=== PATIENT | male | born 1980 | race Caucasian/White ===

== ENCOUNTER 2018-03-03 22:53 | Emergency (ER) | payer BC, OTHER ==
[2018-03-03] MEDS ORDERED: LORazepam 1 MG Tab PO ONE (23:29)
--- NOTE | 2018-03-03 23:36 | EDM.PDOC ---
ED HPI GENERAL MEDICAL PROBLEM - General Chief Complaint: Behavioral/Psych Stated Complaint: JEAN PAUL LI Time Seen by Provider: 03/03/18 23:05 - History of Present Illness INITIAL COMMENTS - FREE TEXT/NARRATIVE: HISTORY AND PHYSICAL: History of present illness: The patient is a 38-year-old male with a history of arrhythmia migraine headaches and chronic back pain who has a provider in [facility] and presents tonight with one to one and a half months history of depression which she feels is worsening. The patient has never worked with a counselor or psychiatrist in the past and said he has had intermittent episodes of depression but never sought treatment because they always improved. Over the last 1-1-1/2 months he says that he has not been as effective at working things through on his own and would like help. He has not spoken to his provider in [place] about options for this and his has a history of depression and when he spoke with her this evening about his feelings she thought he should be seen emergently. When I specifically asked about what was different or new this evening he said nothing only that he did sit down and talk with his and she was unaware of a lot of his feelings. He has no suicidal plan no suicidal thoughts or homicidal thoughts and said he is just depressed about a lot of issues with his family and his life. He has been having trouble sleeping but is eating fine and has no systemic complaints. He said that he had a feeling that we would not have much to offer but any information or referrals would be helpful. He denies any pain currently and does not exhibit any suicidal thoughts on my evaluation and questioning of him. The patient tells me that he used to be a heavy nicotine chewer and quit about a month and a half ago and is not sure if that contributed to some of the changes he has been feeling. He is using an Nicoderm patch only Review of systems: As per history of present illness and below otherwise all systems reviewed and negative. Past medical history: As per history of present illness and as reviewed below otherwise noncontributory. Surgical history: As per history of present illness and as reviewed below otherwise noncontributory. Social history: No reported history of drug or alcohol abuse. Family history: As per history of present illness and as reviewed below otherwise noncontributory. Physical exam: General: Well-developed well-nourished mildly overweight man who is nontoxic and vital signs are noted by me. His a fact is somewhat quiet and flattened with some depressive features but he is open to conversation HEENT: Atraumatic, normocephalic, negative for conjunctival pallor or scleral icterus, mucous membranes moist, throat clear, neck supple, nontender, trachea midline. Lungs: Clear to auscultation, breath sounds equal bilaterally, chest nontender. Heart: S1S2, regular in rhythm no overt murmurs Abdomen: Soft, nondistended, nontender. NABS Pelvis: Deferred Genitourinary: Deferred. Rectal: Deferred. Extremities: Atraumatic, full range of motion without defects or deficits Neurovascular unremarkable. Neuro: Awake, alert, oriented. Cranial nerves II through XII unremarkable. Cerebellum unremarkable. Motor and sensory unremarkable throughout. Exam nonfocal. Diagnostics: [] Therapeutics: Ativan by mouth I discussed the patient's situation for a long time with both the patient alone and also with the at bedside. They're both aware that we are very limited with our resources and as he does not mandate inpatient admission nor does he want that we will give him all resources that we have for outpatient treatment. I've discussed with him connecting with his provider in [facility] as that person may have resources available for which the patient can take advantage more quickly. He states understanding of my limitations and my advice. I told him that if the situation evolves or worsens that we are always here and he can return at any time. Impression: Depression Definitive disposition and diagnosis as appropriate pending reevaluation and review of above. - Related Data Allergies Allergy/AdvReac Type Severity Reaction Status Date / Time No Known Allergies Allergy Verified 03/03/18 23:13 Home Meds: Home Meds Topiramate [Topamax] 0 mg PO DAILY 03/03/18 [History] Past Medical History HEENT History: Reports: Impaired Vision, Other (See Below) Other HEENT History: wears glasses Cardiovascular History: Reports: Arrhythmia Musculoskeletal History: Reports: Back Pain, Chronic Neurological History: Reports: Migraines Endocrine/Metabolic History: Reports: Obesity/BMI 30+ Social & Family History - Family History Family Medical History: Noncontributory - Tobacco Use Smoking Status *Q: Former Smoker Used Tobacco, but Quit: Yes Month/Year Tobacco Last Used: 1 - Recreational Drug Use Recreational Drug Use: No ED ROS GENERAL - Review of Systems Review Of Systems: ROS reveals no pertinent complaints other than HPI. ED EXAM, GENERAL - Physical Exam Exam: See Below (See dictation) Course - Vital Signs Last Recorded V/S: Last Vital Signs Temp 36.3 C 03/03/18 22:53 Pulse 69 03/03/18 22:53 Resp 18 03/03/18 22:53 BP 131/79 03/03/18 22:53 Pulse Ox 97 03/03/18 22:53 - Orders/Labs/Meds Orders: Active Orders 24 hr Category Date Time Status LORazepam [Ativan] Med 03/03/18 23:29 Once 2 mg PO ONETIME ONE Medication Orders Lorazepam (Ativan) 2 mg PO ONETIME ONE Stop: 03/03/18 23:30 Meds: Medications Generic Name Dose Route Start Last Admin Trade Name Freq PRN Reason Stop Dose Admin Lorazepam 2 mg 03/03/18 23:29 Ativan PO 03/03/18 23:30 ONETIME ONE Departure - Departure Time of Disposition: 23:36 Disposition: Home, Self-Care 01 Condition: Good Clinical Impression: Depression Qualifiers: Depression Type: unspecified Qualified Code(s): F32.9 - Major depressive disorder, single episode, unspecified - Discharge Information Referrals: PCP,None [Primary Care Provider] - Additional Instructions: The following information is given to patients seen in the emergency department who are being discharged to home. This information is to outline your options for follow-up care. We provide all patients seen in our emergency department with a follow-up referral. The need for follow-up, as well as the timing and circumstances, are variable depending upon the specifics of your emergency department visit. If you don't have a primary care physician on staff, we will provide you with a referral. We always advise you to contact your personal physician following an emergency department visit to inform them of the circumstance of the visit and for follow-up with them and/or the need for any referrals to a consulting specialist. The emergency department will also refer you to a specialist when appropriate. This referral assures that you have the opportunity for followup care with a specialist. All of these measure are taken in an effort to provide you with optimal care, which includes your followup. Under all circumstances we always encourage you to contact your private physician who remains a resource for coordinating your care. When calling for followup care, please make the office aware that this follow-up is from your recent emergency room visit. If for any reason you are refused follow-up, please contact the [facility] emergency department at and ask to speak to the emergency department charge nurse. Primary care- Internal Medicine and Family [address] [address] Please contact her provider in [facility] and discuss with him or her any resources that are available to you to access for counseling services. Please use resources you have been given here this evening for outpatient care and management as we discussed. Return to ER as needed and as discussed - My Orders Last 24 Hours: My Active Orders 03/03/18 23:29 LORazepam [Ativan] 2 mg PO ONETIME ONE - Assessment/Plan Last 24 Hours: My Active Orders 03/03/18 23:29 LORazepam [Ativan] 2 mg PO ONETIME ONE
== END 2018-03-03 23:47 | disposition home or self-care (01) ==
LOC: MW.ED 22:53
DX: F32.9 Major depressive disorder, single episode, unspecified (principal); Z87.891 Personal history of nicotine dependence
CPT/HCPCS: 99283; A9270